=== PATIENT | male | born 1950 | race Caucasian/White ===

== ENCOUNTER 2018-06-12 08:45 | Day surgery (SDC) | payer MEDICARE, OTHER ==
[2018-06-12] MEDS ORDERED: Propofol 200 MG/20 ML SDV IV ONE (08:46)
[2018-06-12] MEDS ORDERED: Sodium Chloride 0.9% 10 ML Syringe FLUSH PRN (09:00)
[2018-06-12] MEDS: Lactated Ringers 1,000 ML IV SCH ×2 (09:59→10:48)
--- NOTE | 2018-06-12 10:44 | PCM.OPNOTE ---
- General Post-Op/Procedure Note Date of Surgery/Procedure: 06/12/18 Operative Procedure(s): c scope with bx Findings: ascending and descending colon polyp Pre Op Diagnosis: change in bowel habits Post-Op Diagnosis: ascending and descending colon polyp Anesthesia Technique: MAC Primary Surgeon: Korey Weinberg Anesthesia Provider: Arnaud Sykes Pathology: ascending and descending colon polyp Complications: None Condition: Good Free Text/Narrative:: see dictation
--- NOTE | 2018-06-12 14:30 | OR ---
DATE OF OPERATION: 06/12/2018 SURGEON: Korey Weinberg MD PROCEDURE PERFORMED: Colonoscopy. PREOPERATIVE DIAGNOSIS: Change in bowel habits. POSTOPERATIVE DIAGNOSIS: Polyp of the ascending colon and descending colon. INDICATIONS FOR PROCEDURE: This is a 67-year-old white male referred with the above-mentioned complaint, was offered and accepted an upper endoscopy. DESCRIPTION OF OPERATION: After an excellent IV sedation was administered, digital rectal exam was performed. No marked abnormality was noted. Flexible colonoscope was inserted and advanced to the cecum. Prep was excellent. The following findings were noted. Ascending colon, small polypoid lesion near the cecum. Biopsy sent for permanent. Transverse colon, unremarkable. Descending colon, at the proximal descending colon, polypoid lesion, biopsied, submitted for permanent. Sigmoid and rectum, unremarkable. Colon was deflated. The scope was removed. Results by letter. /[id number] VIJI/CARMELA
== END 2018-06-12 11:38 | disposition home or self-care (01) ==
LOC: FB.SDS 08:45
PROVIDERS: ATTEND Surgery
DX: D12.2 Benign neoplasm of ascending colon (principal); D12.4 Benign neoplasm of descending colon; E78.00 Pure hypercholesterolemia, unspecified; N40.0 Benign prostatic hyperplasia without lower urinary tract symptoms; Z80.0 Family history of malignant neoplasm of digestive organs; Z79.82 Long term (current) use of aspirin; Z79.899 Other long term (current) drug therapy
CPT/HCPCS: 00812-QZ; 88305; J2704; J7120